=== PATIENT | male | born 1965 | race Caucasian/White ===

== ENCOUNTER 2017-11-22 00:03 | Inpatient (IN) ==
[2017-11-22 01:08] LABS: Basophils # 0.1 10*3/uL (0.0-0.2); Basophils % 0.5 % (0.0-0.8); Eosinophils # 0.3 10*3/uL (0.0-0.87); Eosinophils % 2.4 % (0.00-10.9); Hemoglobin 12.6 GM/DL (14.0-18.0); Immature Granulocytes % 0.6 %; Immature Granulocytes Absolute 0.07 #; Lymphocytes # 2.1 10*3/uL (1.4-4.0); Mean Corpuscular HGB Conc 34.1 GM/DL (32-36); Mean Corpuscular Hemoglobin 28 PG (27-34); Mean Corpuscular Volume 82.6 FL (87-102); Mean Platelet Volume 10.7 FL (9.6-12.0); Monocytes # 0.5 10*3/uL (0.11-0.8); Monocytes % 3.9 % (1.7-12.7); Neutrophils # 9.2 10*3/uL (1.4-7.4); Neutrophils % 75.6 % (38.7-73.9); Platelet Count 329 T/CUMM (130-400); Red Blood Count 4.48 MC/CUMM (3.8-5.5); Red Cell Distribution Width 14.7 % (9.3-17.3); White Blood Count 12.2 T/CUMM (4-12)
[2017-11-22 01:21] LABS: Albumin 3.5 G/DL (3.4-5.0); Bilirubin,Total 0.9 MG/DL (0.2-1.0); Calcium 8.2 MG/DL (8.5-10.1); Osmolality,Calculated 280.5 MOS/KG (273-304); Potassium 3.8 MMOL/L (3.5-5.1); Total Protein 6.7 G/DL (6.4-8.3)
[2017-11-22 01:27] LABS: Troponin I Only 0.054 NG/ML (0.00-0.045)
[2017-11-22] MEDS ORDERED: FUROSEMIDE 40 MG/4 ML VIAL IV STA (02:05)
[2017-11-22] MEDS ORDERED: FUROSEMIDE 40 MG/4 ML VIAL ONE (02:19)
[2017-11-22 02:27] LABS: VBG Base Excess 0.1 MEQ/L (0-4); VBG HCO3 24.5 MEQ/L (24-28); VBG Oxygen Saturation 98.5 %; VBG PCO2 47.8 MMHG (41-51); VBG PH 7.347
[2017-11-22] MEDS ORDERED: ONDANSETRON 4 MG/2 ML VIAL IV PRN (05:32)
[2017-11-22] MEDS ORDERED: DEXTROSE 50% 25 GM/50 ML VIAL IV PRN (05:32)
[2017-11-22] MEDS ORDERED: GLUCAGON 1 MG VIAL IM PRN (05:32)
[2017-11-22] MEDS ORDERED: ALBUTEROL/IPRATROPIUM 3 ML NEB RESP TX PRN (05:32)
[2017-11-22] MEDS ORDERED: MORPHINE 2 MG/1 ML SYRINGE IV PRN (05:32)
[2017-11-22] MEDS ORDERED: methylPREDNISolone SOD SUC 125 MG/2 ML VIAL IV ONE (06:00)
[2017-11-22] MEDS: NICOTINE 21 MG/24 HR PATCH TRANSDERM PRN (06:18)
[2017-11-22] MEDS: hydrALAZINE 20 MG/1 ML VIAL IV PRN ×2 (06:20→16:31)
[2017-11-22 06:29] LABS: Partial Thromboplastin Time 35.1 SECS (0-40)
[2017-11-22 06:35] LABS: INR 2.4
[2017-11-22 06:36] LABS: PT Patient Result 24.1 SECS
[2017-11-22 06:52] LABS: Risk Ratio 4.63; VLDL CHOLESTEROL 26.2 MG/DL
[2017-11-22] MEDS: ALBUTEROL/IPRATROPIUM 3 ML NEB RESP TX SCH ×3 (07:00→19:10)
[2017-11-22] MEDS: INSULIN REGULAR 100 UNIT/ML SUBCUT SCH ×5 (07:47→23:24)
[2017-11-22] MEDS: DOCUSATE SODIUM 100 MG CAPSULE PO SCH ×2 (08:38→21:23)
[2017-11-22] MEDS: PANTOPRAZOLE 40 MG TABLET PO SCH (08:38)
[2017-11-22] MEDS: FUROSEMIDE 40 MG/4 ML VIAL IV SCH ×2 (08:39→21:24)
[2017-11-22] MEDS ORDERED: NITROGLYCERIN SL 0.4 MG TABLET SL PRN (08:47)
[2017-11-22] MEDS ORDERED: SACUBITRIL/VALSARTAN 49-51 MG TABLET PO SCH (09:00)
[2017-11-22] MEDS ORDERED: PANTOPRAZOLE 40 MG TABLET PO SCH (09:00)
[2017-11-22] MEDS ORDERED: FUROSEMIDE 20 MG TABLET PO SCH (09:00)
[2017-11-22] MEDS ORDERED: LISINOPRIL 10 MG TABLET PO SCH (09:00)
[2017-11-22] MEDS: FERROUS SULFATE 325 MG TABLET PO SCH ×2 (09:39→21:23)
[2017-11-22] MEDS: DIGOXIN 0.25 MG TABLET PO SCH (09:39)
[2017-11-22] MEDS: MAGNESIUM OXIDE 400 MG TABLET PO SCH ×2 (09:39→21:23)
[2017-11-22] MEDS: sitaGLIPtin 100 MG TABLET PO SCH (09:39)
[2017-11-22] MEDS: ASPIRIN EC 81 MG TABLET PO SCH (09:39)
[2017-11-22] MEDS: cloNIDine 0.1 MG TABLET PO SCH ×2 (09:39→21:23)
[2017-11-22] MEDS: ATORVASTATIN 40 MG TABLET PO SCH (09:39)
[2017-11-22] MEDS: ISOSORBIDE MONONITRATE 30 MG TABLET PO SCH (09:39)
[2017-11-22] MEDS: METOPROLOL TARTRATE 50 MG TABLET PO SCH ×2 (09:39→21:23)
[2017-11-22] MEDS: SACUBITRIL/VALSARTAN 49-51 MG TABLET PO SCH ×2 (09:39→21:24)
[2017-11-22] MEDS: methylPREDNISolone SOD SUC 40 MG/1 ML VIAL IV SCH (17:08)
[2017-11-22] MEDS ORDERED: WARFARIN 10 MG TABLET PO SCH (18:00)
[2017-11-23] MEDS: ALBUTEROL/IPRATROPIUM 3 ML NEB RESP TX SCH ×4 (00:31→19:07)
[2017-11-23] MEDS: methylPREDNISolone SOD SUC 40 MG/1 ML VIAL IV SCH ×2 (04:35→18:24)
[2017-11-23 05:12] LABS: Basophils % 0.1 % (0.0-0.8); Hematocrit 36.1 VOL% (42.0-52.0); Hemoglobin 12.6 GM/DL (14.0-18.0); Immature Granulocytes % 0.5 %; Immature Granulocytes Absolute 0.08 #; Lymphocytes # 1.3 10*3/uL (1.4-4.0); Lymphocytes % 8.6 % (21.2-54.2); Mean Corpuscular HGB Conc 34.9 GM/DL (32-36); Mean Corpuscular Hemoglobin 28 PG (27-34); Mean Corpuscular Volume 80.8 FL (87-102); Mean Platelet Volume 10.2 FL (9.6-12.0); Monocytes # 0.8 10*3/uL (0.11-0.8); Monocytes % 5.5 % (1.7-12.7); Neutrophils # 12.5 10*3/uL (1.4-7.4); Neutrophils % 85.3 % (38.7-73.9); Platelet Count 358 T/CUMM (130-400); Red Blood Count 4.47 MC/CUMM (3.8-5.5); Red Cell Distribution Width 14.8 % (9.3-17.3); White Blood Count 14.7 T/CUMM (4-12)
[2017-11-23 05:45] LABS: Albumin 3.3 G/DL (3.4-5.0); Bilirubin,Total 0.8 MG/DL (0.2-1.0); Calcium 8.7 MG/DL (8.5-10.1); Osmolality,Calculated 284.4 MOS/KG (273-304); Potassium 3.7 MMOL/L (3.5-5.1)
[2017-11-23 06:17] LABS: Calcium 8.5 MG/DL (8.5-10.1); Osmolality,Calculated 284.4 MOS/KG (273-304); Potassium 3.7 MMOL/L (3.5-5.1)
[2017-11-23] MEDS: NICOTINE 21 MG/24 HR PATCH TRANSDERM PRN (06:27)
[2017-11-23] MEDS ORDERED: DIGOXIN 0.125 MG TABLET PO SCH (09:00)
[2017-11-23] MEDS: cloNIDine 0.1 MG TABLET PO SCH ×2 (09:07→22:04)
[2017-11-23] MEDS: SACUBITRIL/VALSARTAN 49-51 MG TABLET PO SCH ×2 (09:07→22:03)
[2017-11-23] MEDS: PANTOPRAZOLE 40 MG TABLET PO SCH (09:07)
[2017-11-23] MEDS: ISOSORBIDE MONONITRATE 30 MG TABLET PO SCH (09:07)
[2017-11-23] MEDS: MAGNESIUM OXIDE 400 MG TABLET PO SCH ×2 (09:07→22:04)
[2017-11-23] MEDS: ASPIRIN EC 81 MG TABLET PO SCH (09:08)
[2017-11-23] MEDS: ATORVASTATIN 40 MG TABLET PO SCH (09:08)
[2017-11-23] MEDS: METOPROLOL TARTRATE 50 MG TABLET PO SCH ×2 (09:08→22:04)
[2017-11-23] MEDS: DOCUSATE SODIUM 100 MG CAPSULE PO SCH ×2 (09:08→22:04)
[2017-11-23] MEDS: FERROUS SULFATE 325 MG TABLET PO SCH ×2 (09:08→22:02)
[2017-11-23] MEDS: sitaGLIPtin 100 MG TABLET PO SCH (09:09)
[2017-11-23] MEDS: INSULIN REGULAR 100 UNIT/ML SUBCUT SCH ×4 (09:11→22:04)
[2017-11-23] MEDS: FUROSEMIDE 40 MG/4 ML VIAL IV SCH (09:12)
[2017-11-23] MEDS: metFORMIN 500 MG TABLET PO SCH ×2 (12:43→22:04)
[2017-11-23] MEDS ORDERED: WARFARIN 7.5 MG TABLET PO SCH (18:00)
[2017-11-24] MEDS: ALBUTEROL/IPRATROPIUM 3 ML NEB RESP TX SCH ×2 (00:32→07:10)
[2017-11-24 06:00] LABS: Calcium 8.3 MG/DL (8.5-10.1); Osmolality,Calculated 286.4 MOS/KG (273-304)
[2017-11-24] MEDS: methylPREDNISolone SOD SUC 40 MG/1 ML VIAL IV SCH (06:45)
[2017-11-24] MEDS: INSULIN REGULAR 100 UNIT/ML SUBCUT SCH (07:56)
[2017-11-24 07:59] VITALS: BP 174/88
[2017-11-24] MEDS: metFORMIN 500 MG TABLET PO SCH (08:39)
[2017-11-24] MEDS: PANTOPRAZOLE 40 MG TABLET PO SCH (08:39)
[2017-11-24] MEDS: ASPIRIN EC 81 MG TABLET PO SCH (08:40)
[2017-11-24] MEDS: ISOSORBIDE MONONITRATE 30 MG TABLET PO SCH (08:40)
[2017-11-24] MEDS: ATORVASTATIN 40 MG TABLET PO SCH (08:40)
[2017-11-24] MEDS: MAGNESIUM OXIDE 400 MG TABLET PO SCH (08:40)
[2017-11-24] MEDS: sitaGLIPtin 100 MG TABLET PO SCH (08:40)
[2017-11-24] MEDS: FERROUS SULFATE 325 MG TABLET PO SCH (08:40)
[2017-11-24] MEDS: METOPROLOL TARTRATE 50 MG TABLET PO SCH (08:40)
[2017-11-24] MEDS: NICOTINE 21 MG/24 HR PATCH TRANSDERM PRN (08:40)
[2017-11-24] MEDS: SACUBITRIL/VALSARTAN 49-51 MG TABLET PO SCH (08:40)
[2017-11-24] MEDS: cloNIDine 0.1 MG TABLET PO SCH (08:40)
[2017-11-24] MEDS: DIGOXIN 0.25 MG TABLET PO SCH (08:40)
[2017-11-24] MEDS: DOCUSATE SODIUM 100 MG CAPSULE PO SCH (08:40)
[2017-11-24 08:53] LABS: INR 2.9
[2017-11-24 08:54] LABS: PT Patient Result 29.9 SECS
[2017-11-24] MEDS ORDERED: INFLUENZA VIRUS VACCINE 0.5 ML SYRINGE IM ONE (09:00)
[2017-11-24] MEDS ORDERED: FUROSEMIDE 40 MG TABLET PO SCH (09:00)
== END 2017-11-24 11:06 | disposition home or self-care (01) | DRG 293 ==
LOC: N.ED 00:03 → SUATTDRO 03:35 → N.EDINP 03:35 → N.ICU 05:22 → N.TELEN 20:55
PROVIDERS: ADMIT Internal Medicine Infectious Disease; ATTEND Internal Medicine Cardiovascular Disease

== ENCOUNTER 2022-08-06 00:26 | Observation (INO) ==
[2022-08-06] MEDS ORDERED: LABETALOL 20 MG/4 ML SYRINGE IV STA (00:40)
[2022-08-06 00:52] LABS: Basophils # 0.1 10*3/uL (0.0-0.2); Basophils % 0.5 % (0.0-0.8); Eosinophils # 0.6 10*3/uL (0.0-0.87); Eosinophils % 4.9 % (0.00-10.9); Hemoglobin 15.9 GM/DL (14.0-18.0); Immature Granulocytes % 0.4 %; Immature Granulocytes Absolute 0.05 #; Lymphocytes # 2.2 10*3/uL (1.4-4.0); Lymphocytes % 17.8 % (21.2-54.2); Mean Corpuscular HGB Conc 31.2 GM/DL (32-36); Mean Corpuscular Volume 75.3 FL (87-102); Mean Platelet Volume 9.7 FL (9.6-12.0); Monocytes # 0.7 10*3/uL (0.11-0.8); Monocytes % 5.6 % (1.7-12.7); Neutrophils % 70.8 % (38.7-73.9); Platelet Count 288 T/CUMM (130-400); Red Blood Count 6.77 MC/CUMM (3.8-5.5); Red Cell Distribution Width 18.1 % (9.3-17.3); White Blood Count 12.5 T/CUMM (4-12)
[2022-08-06 01:10] LABS: Bilirubin,Total 0.5 MG/DL (0.20-1.00); Calcium 9.4 MG/DL (8.5-10.1); Osmolality,Calculated 282.3 MOS/KG (273-304); Potassium 3.5 MMOL/L (3.5-5.1); Total Protein 7.6 G/DL (6.4-8.2)
[2022-08-06 01:22] LABS: INR 2.7; PT Patient Result 28.2 SECS (10.1-12.1)
[2022-08-06 01:24] LABS: RBC,Urine 2 /HPF (0-4)
[2022-08-06 01:25] LABS: Bilirubin,Urine Negative (Negative); Blood, Urine Trace mg/dL (Negative); Glucose,Urine (UA) >=1000 mg/dL (Negative); Ketones,Urine Negative (Negative); Nitrite,Urine Negative (Negative); Protein,Urine >=300 mg/dL (Negative); Urine Appearance Clear (Clear); Urine Color Yellow (Yellow); Urine Specific Gravity 1.025 (1.001-1.035); Urine Urobilinogen 0.2 eU/dL (<2.0)
[2022-08-06] MEDS ORDERED: MORPHINE 2 MG/1 ML SYRINGE IV STA (01:41)
[2022-08-06] MEDS ORDERED: ONDANSETRON 4 MG/2 ML VIAL IV STA (01:41)
[2022-08-06 01:46] LABS: Barbiturates Screen,Urine Negative (Negative); Benzodiazepines Screen,Urine Negative (Negative); Cannabinoid Screen,Urine Negative (Negative); Opiate Screen,Urine Negative (Negative); Phencyclidine Screen,Urine Negative (Negative)
[2022-08-06] MEDS ORDERED: ONDANSETRON 4 MG/2 ML VIAL IV PRN (02:02)
[2022-08-06] MEDS ORDERED: MORPHINE 2 MG/1 ML SYRINGE IV PRN (02:02)
[2022-08-06] MEDS ORDERED: NITROGLYCERIN SL 0.4 MG TABLET SL PRN (07:55)
[2022-08-06 08:16] LABS: Basophils # 0.1 10*3/uL (0.0-0.2); Basophils % 0.5 % (0.0-0.8); Eosinophils # 0.6 10*3/uL (0.0-0.87); Eosinophils % 5.2 % (0.00-10.9); Immature Granulocytes % 0.4 %; Immature Granulocytes Absolute 0.04 #; Lymphocytes # 2.2 10*3/uL (1.4-4.0); Lymphocytes % 20.7 % (21.2-54.2); Mean Corpuscular HGB Conc 30.2 GM/DL (32-36); Mean Corpuscular Volume 77.5 FL (87-102); Mean Platelet Volume 10.8 FL (9.6-12.0); Monocytes # 0.8 10*3/uL (0.11-0.8); Monocytes % 7.2 % (1.7-12.7); Platelet Count 296 T/CUMM (130-400); Red Blood Count 6.71 MC/CUMM (3.8-5.5); Red Cell Distribution Width 18.4 % (9.3-17.3); White Blood Count 10.7 T/CUMM (4-12)
[2022-08-06 08:21] LABS: Hemoglobin 15.7 GM/DL (14.0-18.0)
[2022-08-06] MEDS: INSULIN REGULAR 100 UNIT/ML SUBCUT SCH ×4 (08:22→22:21)
[2022-08-06 08:29] LABS: Albumin 3.9 G/DL (3.4-5.0); Bilirubin,Total 0.5 MG/DL (0.20-1.00); Calcium 9.8 MG/DL (8.5-10.1); Osmolality,Calculated 284.1 MOS/KG (273-304); Potassium 4.4 MMOL/L (3.5-5.1); Total Protein 7.8 G/DL (6.4-8.2)
[2022-08-06] MEDS ORDERED: PANTOPRAZOLE 40 MG TABLET PO SCH (09:00)
[2022-08-06] MEDS: PANTOPRAZOLE 40 MG TABLET PO SCH ×2 (09:14→22:22)
[2022-08-06] MEDS: ISOSORBIDE MONONITRATE 30 MG TABLET PO SCH (09:14)
[2022-08-06] MEDS: EZETIMIBE 10 MG TABLET PO SCH (09:14)
[2022-08-06] MEDS: ASPIRIN EC 81 MG TABLET PO SCH (09:14)
[2022-08-06] MEDS: DAPAGLIFLOZIN 10 MG TABLET PO SCH (09:15)
[2022-08-06] MEDS: TAMSULOSIN 0.4 MG CAPSULE PO SCH (09:15)
[2022-08-06] MEDS: carvediloL 25 MG TABLET PO SCH ×2 (09:15→17:50)
[2022-08-06] MEDS: cilostazoL 100 MG TABLET PO SCH ×2 (09:15→22:20)
[2022-08-06] MEDS: MAGNESIUM OXIDE 400 MG TABLET PO SCH ×2 (09:15→22:20)
[2022-08-06] MEDS: buPROPion SR 150 MG TABLET PO SCH ×2 (09:15→22:20)
[2022-08-06] MEDS: SACUBITRIL/VALSARTAN 49-51 MG TABLET PO SCH ×2 (09:21→22:21)
[2022-08-06] MEDS: FUROSEMIDE 40 MG TABLET PO SCH (09:22)
[2022-08-06] MEDS ORDERED: WARFARIN 7.5 MG TABLET PO SCH (18:00)
[2022-08-06] MEDS ORDERED: ATORVASTATIN 40 MG TABLET PO SCH (21:00)
[2022-08-07 05:41] LABS: INR 3.1; PT Patient Result 31.8 SECS (10.1-12.1)
[2022-08-07 05:52] LABS: Osmolality,Calculated 279.4 MOS/KG (273-304); Potassium 3.9 MMOL/L (3.5-5.1)
[2022-08-07] MEDS: INSULIN REGULAR 100 UNIT/ML SUBCUT SCH ×2 (07:30→11:51)
[2022-08-07] MEDS: ISOSORBIDE MONONITRATE 30 MG TABLET PO SCH (09:53)
[2022-08-07] MEDS: ASPIRIN EC 81 MG TABLET PO SCH (09:53)
[2022-08-07] MEDS: carvediloL 25 MG TABLET PO SCH (09:54)
[2022-08-07] MEDS: buPROPion SR 150 MG TABLET PO SCH (09:54)
[2022-08-07] MEDS: FUROSEMIDE 40 MG TABLET PO SCH (09:54)
[2022-08-07] MEDS: PANTOPRAZOLE 40 MG TABLET PO SCH (09:54)
[2022-08-07] MEDS: cilostazoL 100 MG TABLET PO SCH (09:54)
[2022-08-07] MEDS: EZETIMIBE 10 MG TABLET PO SCH (09:54)
[2022-08-07] MEDS: DAPAGLIFLOZIN 10 MG TABLET PO SCH (09:54)
[2022-08-07] MEDS: TAMSULOSIN 0.4 MG CAPSULE PO SCH (09:54)
[2022-08-07] MEDS: SACUBITRIL/VALSARTAN 49-51 MG TABLET PO SCH (10:06)
[2022-08-07] MEDS: MAGNESIUM OXIDE 400 MG TABLET PO SCH (10:06)
[2022-08-07 11:32] VITALS: BP 153/87
[2022-08-07] MEDS ORDERED: WARFARIN 10 MG TABLET PO SCH (18:00)
[2022-08-11] MEDS ORDERED: WARFARIN 5 MG TABLET PO SCH (18:00)
== END 2022-08-07 13:10 | disposition home or self-care (01) ==
LOC: EDUNIT# → EDBD → N.ED 00:26 → N.TELES 00:26
PROVIDERS: ADMIT Internal Medicine; ATTEND Internal Medicine